=== PATIENT | female | born 1980 | race Caucasian/White ===

== ENCOUNTER 2020-10-20 11:32 | Emergency (ER) | payer BC, SELFPAY ==
[2020-10-20 11:51] VITALS: BP 141/86; PULSE 94; RESP 18; TEMP 36.8; O2SAT 100
--- NOTE | 2020-10-20 12:51 | ED.GENADULT ---
HPI - General Adult General Chief complaint: Wound/Laceration Stated complaint: ?Staff Infection to face Time Seen by Provider: 10/20/20 11:51 Source: patient, family and RN notes reviewed Mode of arrival: ambulatory Limitations: no limitations History of Present Illness HPI narrative: Patient is a 39-year-old female who presents with wounds to the forehead patient notes that this is been present for weeks has been seen in urgent care started on antibiotics patient does note some purulent oozing at times patient has been picking the skin patient has not seen primary care for this on arrival patient is not distressed denies fever chills or other complaints Related Data Allergies Allergy/AdvReac Type Severity Reaction Status Date / Time No Known Allergies Allergy Verified 10/20/20 11:49 Review of Systems Review of Systems: All systems reviewed & are unremarkable except as noted in HPI and below PMFSH Social History Social History (Updated 10/20/20 @ 12:52 by Omari Dubose PA-C) Smoking status: Current every day smoker Exam Narrative: Exam Narrative: GENERAL: Well-appearing, well-nourished, and in no acute distress. HEAD: Normocephalic, atraumatic. EYES: PERRLA and EOMI. ENT: Nares clear, no rhinorrhea or epistaxis. Mucous membranes moist. CHEST: Clear to auscultation. No respiratory distress. No wheezes rales or rhonchi HEART: Regular rate and rhythm. No murmur heard. Normal peripheral pulses. EXTREMITIES: Normal range of motion. No edema. SKIN: Warm, dry, no rash. Patient with excoriations and wounds to the forehead some underlying purulence involving a few NEURO: No focal deficits. Alert and oriented x3. Cranial nerves II through XII grossly intact PSYCH: Normal mood and affect. Course Course Emergency Course: Patient in the room no distress will be referred to primary care felt appropriate for outpatient reevaluation given reasons to return Vital Signs Vital signs: Vital Signs Temperature 98.2 F 10/20/20 11:51 Pulse Rate 94 10/20/20 11:51 Respiratory Rate 18 10/20/20 11:51 Blood Pressure 141/86 H 10/20/20 11:51 Pulse Oximetry 100 10/20/20 11:51 Temperature 98.2 F 10/20/20 11:51 Pulse Rate 94 10/20/20 11:51 Respiratory Rate 18 10/20/20 11:51 Blood Pressure 141/86 H 10/20/20 11:51 Pulse Oximetry 100 10/20/20 11:51 Medical Decision Making MDM Narrative Medical decision making narrative: Patient in the room at this time in no distress aware of case findings treatment plan and diagnosis agreeing to follow-up as instructed or to return if symptoms worsen or concerns Vital Signs Vital Signs: Vital Signs Temperature 98.2 F 10/20/20 11:51 Pulse Rate 94 10/20/20 11:51 Respiratory Rate 18 10/20/20 11:51 Blood Pressure 141/86 H 10/20/20 11:51 Pulse Oximetry 100 10/20/20 11:51 Temperature 98.2 F 10/20/20 11:51 Pulse Rate 94 10/20/20 11:51 Respiratory Rate 18 10/20/20 11:51 Blood Pressure 141/86 H 10/20/20 11:51 Pulse Oximetry 100 10/20/20 11:51 Discharge Plan Discharge Clinical Impression: Open wound of face Patient Disposition: Home, Self-Care Condition: Stable Instructions: Antibiotic Form, Acute Wounds (ED) Additional Instructions: Follow up with primary care in the next 2-3 days for re-evaluation return if symptoms worsen or concerns, any increase in redness swelling pain or fever over 100.5 Clean wound with mild soapy water. Apply antibiotic ointment and clean dressing at least three times daily Follow patient education sheets Prescriptions: New mupirocin 2 % ointment 1 applic topical TID Qty: 15 RF: 0 doxycycline hyclate 100 mg tablet 100 mg PO BID 7 Days Qty: 14 RF: 0 Follow-up/Referrals: PHYSICIAN,CUSTOMER DEVELOPMENT MANAGER [Primary Care Provider] - Rell Morales MD [Physician] -
== END 2020-10-20 13:17 | disposition home or self-care (01) ==
PROVIDERS: Emergency Provider Emergency Medicine
DX: L98.9 Disorder of the skin and subcutaneous tissue, unspecified (principal)
CPT/HCPCS: 99283

== ENCOUNTER 2024-12-12 12:42 | Emergency (ER) | payer SELFPAY ==
--- OUTSIDE RECORDS SUMMARY | 2024-12-12 12:45 | XMS_ITS | Continuity of Care Document ---
Author Name Cheo Meeta Address [address] [place] [address] Organization Unknown Address [address] [place] [address] Medications No known medications Problems No known problems
--- OUTSIDE RECORDS SUMMARY | 2024-12-12 12:45 | XMS_ITS | Continuity of Care Document ---
Author Name Meeta Grider Address [address] [place] [address] Organization Unknown Address [address] [place] [address] Medications No known medications Problems No known problems
--- OUTSIDE RECORDS SUMMARY | 2024-12-12 12:45 | XMS_ITS | Clinical Summary ---
Author Organization [facility] Address [address] [place] [address] Phone Care Team Providers Care Shoe Salesperson Name Role Phone Savannah Carter APRN Primary Care Provider Social History Tobacco Use Types Packs/Day Years Used Date Smoking Tobacco: Never Assessed Comments Unknown Sex and Gender Information Value Date Recorded Sex Assigned at Not on file Legal Sex Female 3:08 PM CDT Gender Identity Not on file Sexual Orientation Not on file Plan of Treatment Health Maintenance Due Date Last Done Comments Hepatitis C Virus (HCV) Screening 1978 TdaP Immunization 1978 Hepatitis B Immunization (1 of 3 - 19+ 3-dose series) 1997 Pap Smear 11/26/1999 Cervical Cancer Screening (CCS) 2008 HPV/Cotest 2008 Cologuard 11/26/2023 Colonoscopy 11/26/2023 Colorectal Cancer Screening 11/26/2023 Immunochemical Fecal Occult Blood 11/26/2023 SARS-COV-2 Immunization ( season) 2024 Influenza Immunization (#1) 2025 Respiratory Syncytial Virus (RSV) Immunization (Adult) (1 - 1-dose 75+ series) 2053 Human Papillomavirus (HPV) Immunization Aged Out No longer eligible b ased on patient's age to complete this topic Meningococcal Immunization (ACWY) Aged Out No longer eligible based on patient's age to complete this topic Pneumococcal Immunization Combined Aged Out No longer eligible based on patient's age to complete this topic Rotavirus Immunization Aged Out No lo nger eligible based on patient's age to complete this topic Insurance MEDICAID [employer] Care Teams Shoe Salesperson Relationship Specialty Start Date End Date Savannah Carter APRN [address] [facility] [address] [address] [place] [address] PCP - General Family Medicine 12/01/16
[2024-12-12 13:00] VITALS: BP 127/94; PULSE 95; RESP 16; TEMP 36.6; O2SAT 100
--- NOTE | 2024-12-12 13:06 | ED.ABDPAIN ---
HPI - Abdominal Pain General Chief Complaint: Abdominal Pain Stated Complaint: ABD PAIN Time Seen by Provider: 12/12/24 13:06 Focused HPI: Patient is a 44-year-old female who presents to the ER with abdominal pain that started suddenly last night. She reports yesterday she started having diarrhea that was ?painful.Patient reports most of her pain is around her umbilicus. She also reports she had a fever last night but is unsure how high. Patient has not taken any medication to treat her pain. 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 Patient reports she has a headache every time she stands up. She denies any sore throat, urinary symptoms, or back pain. GENERAL: Ill-appearing, well-nourished, and in no acute distress. HEAD: Normocephalic, atraumatic. CHEST: Clear to auscultation. ?No respiratory distress. HEART: Regular rate and rhythm.? NEURO: ?Alert and oriented x3. GI/: + BS, tenderness LLQ with palpation, negative Goldberg's sign Patient screened in triage and initial orders placed.? ?Additional care and disposition to be based upon?diagnostic testing and treatment. Related Data Home Medications ?Medication ?Instructions ?Recorded ?Confirmed ?Last Taken ?Type No Home Medications 08/08/23 08/09/23 Unknown History Allergies Allergy/AdvReac Type Severity Reaction Status Date / Time No Known Allergies Allergy Verified 08/09/23 09:37 [facility] Past Medical History Medical History Abnormal Pap smear of cervix Surgical History Surgical History H/O colposcopy with cervical biopsy History of delivery Family History Family History Mother Cervical cancer Grandparent Cervical cancer Social History Social History Smoking packs per day: 0.5 Smoking cigarettes per day: 10.0 Years smoked: 18 Smoking pack-years: 9.00 Smoking status: Current every day smoker Tobacco type: cigarettes Alcohol intake: never Substance use: current Substance use type: marijuana Do You Feel Safe in your Home?: Yes Lack of Transportation: No Lack of Food: Never True Current Housing: I Have Housing Concerned About Future Housing: No Difficulty Paying Gas/Electric Bills: No Difficulty Paying for Meds: No Currently Unemployed: No Education: High School Diploma/GED Difficulty w/ Childcare or Family Care: No Living arrangements: with family Additional living arrangements comments: SON Occupation/Education: occupation Gender identity (if verbalized by the patient): Female Sexual Orientation (if Verbalized by the Patient): Straight or Heterosexual Spiritual care concerns: No Course Vital Signs Vital signs: Vital Signs Temperature 36.6 C 12/12/24 13:00 Pulse Rate 95 12/12/24 13:00 Respiratory Rate 16 12/12/24 13:00 Blood Pressure 127/94 H 12/12/24 13:00 Pulse Oximetry 100 12/12/24 13:00 Temperature 36.6 C 12/12/24 13:00 Pulse Rate 95 12/12/24 13:00 Respiratory Rate 16 12/12/24 13:00 Blood Pressure 127/94 H 12/12/24 13:00 Pulse Oximetry 100 12/12/24 13:00 Discharge Plan Discharge Clinical Impression: Abdominal pain Patient Disposition: Elopement After Seen by Prov Instructions: Antibiotic Form Patient Language: Singaporean Prescriptions: No Action No Home Medications Follow-up/Referrals: PHYSICIAN,SCAFFOLD ERECTOR [Primary Care Provider] -
--- NOTE | 2024-12-12 14:13 | PC.NURSE ---
CALLED FOR ROOM, NOT IN LOBBY
--- OUTSIDE RECORDS SUMMARY | 2024-12-12 14:18 | XMS_ITS | Clinical Summary ---
Author Organization [facility] Address [address] [place] [address] Phone Care Team Providers Care Spool Cleaner Name Role Phone Savannah Carter APRN Primary Care Provider [phone] Social History Tobacco Use Types Packs/Day Years [...] Insurance MEDICAID [employer] Care Teams Spool Cleaner Relationship Specialty Start Date End Date Savannah Carter APRN [address] [facility] [address] [place] [address] PCP - General Family Medicine 12/01/16
== END 2024-12-12 14:24 | disposition left against medical advice (07) ==
LOC: ANHED 14:16
PROVIDERS: Emergency Provider Registered Nurse
DX: R10.33 Periumbilical pain (principal); F17.210 Nicotine dependence, cigarettes, uncomplicated
CPT/HCPCS: 99281